=== PATIENT | female | born 1965 | race Caucasian/White ===

== ENCOUNTER 2017-03-17 19:30 | Emergency (ER) | payer MEDICARE, MEDICAID ==
[~2017-03-17] VITALS: Ht 157.5 cm; Wt 60.0 kg
[2017-03-17 19:35] VITALS: BP 145/93; PULSE 95; RESP 16; TEMP 98.8; O2SAT 96
--- NOTE | 2017-03-17 21:28 | PD ---
HPI Chief Complaint: Fall Time Seen by Provider: 21:13 Travel History International Travel<30 days: Yes Contact w/Intl Traveler<30days: Yes Name of Country Traveled to: [facility] Traveled to known affect area: Yes History of Present Illness HPI 52yo F with PMH of CVA with left sided weakness, s/p MACHINE [employer] shunt, antiphospholipid syndrome on coumadin presents to the ED with c/o persistent headache after fall 2 days ago. Pt was in [place] wheel chair on a cruise when the wheelchair tipped backwards and she hit her head. Denies any LOC. Pt also slipped off a stool 4 days ago and hit her head and left shoulder. She does have left sided neck pain, left shoulder pain as well as occipital headache where she hit her head. Denies any fever, visual changes, new focal weakness or numbness, chest pain, sob, n/v, abdominal pain. Pt had recent breast biopsy and is on both lovenox and coumadin to bridge her to coumadin. PFSH Past Medical History Hx Anticoagulant Therapy: Yes (LOVENOX AND COUMADIN) Social History Tobacco Use: No Allergies-Medications (Allergen,Severity, Reaction): Coded Allergies: codeine (Verified Allergy, Severe, 03/17/17) Reported Meds & Prescriptions Reported Meds & Active Scripts Active Reported Lovenox Inj (Enoxaparin Sodium) 80 mg/0.8 ML Syr 90 Mg SQ DAILY Tramadol (Tramadol HCl) 50 Mg Tab 50 Mg PO Q4H PRN Ranitidine (Ranitidine HCl) 150 Mg Tab 150 Mg PO DAILY Coumadin (Warfarin) 7.5 Mg Tab 7.5 Mg PO DAILY Tizanidine (Tizanidine HCl) 4 Mg Cap 8 Mg PO TID Ibuprofen 200 Mg Tab 600 Mg PO QID PRN Lexapro (Escitalopram Oxalate) 10 Mg Tab 10 Mg PO DAILY Baclofen 20 Mg Tab 60 Mg PO HS Baclofen 20 Mg Tab 40 Mg PO DAILY Aripiprazole 2 Mg Tab 2 Mg PO HS Lamictal (Lamotrigine) 200 Mg Tab 200 Mg PO BID Review of Systems Except as stated in HPI: all other systems reviewed are Neg Physical Exam Narrative GENERAL: 52yo F not in distress. SKIN: Focused skin assessment warm/dry. HEAD: Atraumatic. Normocephalic. No hematoma or laceration. EYES: Pupils equal and round at 3mm bilaterally. No scleral icterus. No injection or drainage. ENT: No nasal bleeding or discharge. Mucous membranes pink and moist. NECK: Trachea midline. No JVD. CARDIOVASCULAR: Regular rate and rhythm. No murmur appreciated. RESPIRATORY: No accessory muscle use. Clear to auscultation. Breath sounds equal bilaterally. GASTROINTESTINAL: Abdomen soft, non-tender, nondistended. No rebound tenderness or guarding. MUSCULOSKELETAL: No obvious deformities. No clubbing. No cyanosis. No edema. NEUROLOGICAL: Awake and alert. Left facial droop, left sided facial and UE decreased sensation. Decreased strength in LUE. These are all old and not new. PSYCHIATRIC: Appropriate mood and affect; insight and judgment normal. Data Data Last Documented VS Vital Signs Date Time Temp Pulse Resp B/P (MAP) Pulse Ox O2 Delivery O2 Flow Rate FiO2 03/17/17 23:51 03/17/17 19:35 98.8 95 16 96 Room Air Orders Orders Ct Brain W/O Iv Contrast(Rout) (03/17/17 ) Ct Cerv Spine W/O Contrast (03/17/17 ) Shoulder, Limited(2vws) (03/17/17 ) Morphine Inj (Morphine Inj) (03/17/17 21:30) Complete Blood Count With Diff (03/17/17 21:25) Basic Metabolic Panel (Bmp) (03/17/17 21:25) Prothrombin Time / Inr (Pt) (03/17/17 21:25) Act Partial Throm Time (Ptt) (03/17/17 21:25) Ketorolac Inj (Toradol Inj) (03/18/17 00:00) Ed Discharge Order (03/18/17 00:11) Labs Laboratory Tests Test 03/17/17 21:55 White Blood Count 8.6 TH/MM3 Red Blood Count 4.27 MIL/MM3 Hemoglobin 13.6 GM/DL Hematocrit 39.6 % Mean Corpuscular Volume 92.7 FL Mean Corpuscular Hemoglobin 31.9 PG Mean Corpuscular Hemoglobin Concent 34.3 % Red Cell Distribution Width 12.5 % Platelet Count 320 TH/MM3 Mean Platelet Volume 7.5 FL Neutrophils (%) (Auto) 56.2 % Lymphocytes (%) (Auto) 36.6 % Monocytes (%) (Auto) 6.7 % Eosinophils (%) (Auto) 0.1 % Basophils (%) (Auto) 0.4 % Neutrophils # (Auto) 4.9 TH/MM3 Lymphocytes # (Auto) 3.2 TH/MM3 Monocytes # (Auto) 0.6 TH/MM3 Eosinophils # (Auto) 0.0 TH/MM3 Basophils # (Auto) 0.0 TH/MM3 CBC Comment DIFF FINAL Differential Comment Prothrombin Time 17.4 SEC Prothromb Time International Ratio 1.5 RATIO Activated Partial Thromboplast Time 32.4 SEC Blood Urea Nitrogen 21 MG/DL Creatinine 0.72 MG/DL Random Glucose 90 MG/DL Calcium Level 8.8 MG/DL Sodium Level 141 MEQ/L Potassium Level 3.7 MEQ/L Chloride Level 110 MEQ/L Carbon Dioxide Level 25.0 MEQ/L Anion Gap 6 MEQ/L Estimat Glomerular Filtration Rate 86 ML/MIN MDM Medical Decision Making Medical Screen Exam Complete: Yes Emergency Medical Condition: Yes Differential Diagnosis ICH vs. contusion vs. fracture Narrative Course 52yo F with previous CVA, craniotomy and subsequent MACHINE [employer] shunt and antiphospholipid syndrome on anticoagulation here with evaluation for headache, left shoulder pain s/p mechanical fall 2 days ago. Labs reviewed, no leukocytosis. BMP unremarkable. INR 1.5. CT cervical spine showed no acute findings. CT brain showed previous right craniotomy and left ventriculostomy without hydrocephalous. Xray left shoulder showed no fracture. Pt given morphine with little improvement so toradol was added with improvement. Return precautions given. Diagnosis Primary Impression: Fall Qualified Codes: W19.XXXA - Unspecified fall, initial encounter Patient Instructions: General Instructions Departure Forms: Tests/Procedures Additional Instructions: Please follow up with your primary care physician in 1-2 days. Return to the ED if symptoms worsen. Med/Other Pt SpecificInfo: No Change to Meds Disposition: 01 DISCHARGE HOME Condition: Stable Patti Liriano DO Mar 17, 2017 21:28
[2017-03-17] MEDS ORDERED: MORPHINE SULFATE 2 MG/ML INJ IV PUSH ONE (21:30)
[2017-03-17] MEDS ORDERED: BACL20TA PO ×2 (21:44)
[2017-03-17] MEDS ORDERED: TIZA4CAP3 PO (21:44)
[2017-03-17] MEDS ORDERED: TRAM50TA PO (21:44)
[2017-03-17] MEDS ORDERED: IBUP200T2 PO (21:44)
[2017-03-17] MEDS ORDERED: COUM7.5T PO (21:44)
[2017-03-17] MEDS ORDERED: RANI150T PO (21:44)
[2017-03-17] MEDS ORDERED: LEXA10TA PO (21:44)
[2017-03-17] MEDS ORDERED: ARIP1TAB16 PO (21:44)
[2017-03-17] MEDS ORDERED: LAMI200T PO (21:44)
[2017-03-17] MEDS ORDERED: ENOX80P SQ (21:46)
--- NOTE | 2017-03-17 21:57 | RADRPT ---
EXAM DATE/TIME: 03/17/2017 21:49 [facility] COMPARISON: No previous studies available for comparison. INDICATIONS : Pain post fall. MEDICAL HISTORY : None. SURGICAL HISTORY : None. ENCOUNTER: Initial ACUITY: 1 week PAIN SCORE: 10/10 LOCATION: Left Shoulder blade. FINDINGS: Two view examination of the left shoulder demonstrates no acute fracture dislocation. No bony destruc tive changes. CONCLUSION: 1. No acute findings. Barber Crenshaw MD on March 17, 2017 at 21:54 Board Certified Radiologist. This report was verified electronically.
[2017-03-17 22:12] VITALS: BP 155/84
[2017-03-17 22:34] LABS: AUTOMATED NEUTROPHIL # 4.9 TH/MM3 (1.8-7.7); BASOPHIL % 0.4 % (0.0-2.0); EOSINOPHIL % 0.1 % (0.0-4.0); HEMATOCRIT 39.6 % (35.0-46.0); HEMO FLAGS DIFF FINAL; LYMPH % 36.6 % (9.0-44.0); LYMPHOCYTE # 3.2 TH/MM3 (1.0-4.8); MEAN CELL VOLUME 92.7 FL (80.0-100.0); MEAN CORPUSCULAR HEMOGLOBIN 31.9 PG (27.0-34.0); MEAN CORPUSCULAR HGB CONC 34.3 % (32.0-36.0); MONO % 6.7 % (0.0-8.0); NEUT % 56.2 % (16.0-70.0); PLATELET COUNT 320 TH/MM3 (150-450); RED BLOOD COUNT 4.27 MIL/MM3 (4.00-5.30); RED CELL DISTRIBUTION WIDTH 12.5 % (11.6-17.2); WHITE BLOOD COUNT 8.6 TH/MM3 (4.0-11.0)
[2017-03-17 22:38] LABS: POTASSIUM 3.7 MEQ/L (3.5-5.1)
--- NOTE | 2017-03-17 22:52 | RADRPT ---
EXAM DATE/TIME: 03/17/2017 22:07 [facility] COMPARISON: No previous studies available for comparison. INDICATIONS : Recent fall with continued cephalgia. RADIATION DOSE: 56.35 CTDIvol (mGy) MEDICAL HISTORY : Cerebrovascular disease. SURGICAL HISTORY : Shunt ENCOUNTER: Initial ACUITY: 2 days PAIN SCALE: 8/10 LOCATION: cranial TECHNIQUE: Multiple contiguous axial images were obtained of the head. Using automated exposure control and adj ustment of the mA and/or kV according to patient size, radiation dose was kept as low as reasonably a chievable to obtain optimal diagnostic quality images. DICOM format image data is available electro nically for review and comparison. FINDINGS: There is previous right craniotomy and a large area of encephalomalacia in the right hemisphere. Left -sided ventriculostomy tube present with tip in the left posterior lateral ventricle. No hydrocephalu s. No acute bony abnormality. CONCLUSION: 1. Previous right craniotomy with large area of encephalomalacia in the right hemisphere. Left ventri culostomy without hydrocephalus. No prior study for comparison. Barber Crenshaw MD on March 17, 2017 at 22:48 Board Certified Radiologist. This report was verified electronically.
[2017-03-17 22:55] LABS: APTT (PATIENT) 32.4 SEC (24.3-30.1); INTERNATIONAL NORMALIZED RATIO 1.5 RATIO; PROTHROMBIN TIME - PATIENT 17.4 SEC (9.8-11.6)
--- NOTE | 2017-03-17 22:55 | RADRPT ---
EXAM DATE/TIME: 03/17/2017 22:08 [facility] COMPARISON: No previous studies available for comparison. INDICATIONS : Recent fall with continued cephalgia. RADIATION DOSE: 25.64 CTDIvol (mGy) MEDICAL HISTORY : Cerebrovascular disease. SURGICAL HISTORY : Shunt ENCOUNTER: Initial ACUITY: 2 days PAIN SCALE: 8/10 LOCATION: neck TECHNIQUE: Volumetric scanning of the cervical spine was performed. Multiplanar reconstructions in the sagittal, coronal and oblique axial planes were performed. Using automated exposure control and adjustment o f the mA and/or kV according to patient size, radiation dose was kept as low as reasonably achievable to obtain optimal diagnostic quality images. DICOM format image data is available electronically f or review and comparison. FINDINGS: No acute fracture or spondylolisthesis. Reversal of normal cervical lordosis. No prevertebral soft ti ssue swelling. Mild dextroscoliosis. No canal stenosis. CONCLUSION: 1. No acute findings. Mild kyphoscoliosis of the cervical spine. Barber Crenshaw MD on March 17, 2017 at 22:50 Board Certified Radiologist. This report was verified electronically.
[2017-03-18] MEDS ORDERED: KETOROLAC TROMETHAMINE 30 MG/ML (IVP) VIAL IV PUSH ONE
== END 2017-03-18 00:18 | disposition home or self-care (01) ==
LOC: NEPE 19:30
DX: R51 Headache (principal); Z86.73 Personal history of transient ischemic attack (TIA), and cerebral infarction without residual deficits; W05.0XXA Fall from non-moving wheelchair, initial encounter; Z79.01 Long term (current) use of anticoagulants; Z79.899 Other long term (current) drug therapy
CPT/HCPCS: 70450; 72125; 73030; 80048; 85025; 85610; 85730; 96374; 96375; 99285; J1885; J2270